=== PATIENT | male | born 1995 | race Caucasian/White ===

== ENCOUNTER 2016-10-03 00:50 | Emergency (ER) | payer OTHER, BC ==
[2016-10-03] MEDS ORDERED: HYDROmorphone 1 MG/ML Syringe ONE (01:02)
[2016-10-03 01:15] LABS: CHLORIDE,CL 104 mmol/L (98-107); SODIUM,NA 140 mmol/L (136-145)
[2016-10-03] MEDS ORDERED: Acetaminophen 500 MG Tab PO ONE (02:03)
[2016-10-03] MEDS ORDERED: Sodium Chloride 0.9% 1,000 ML IV ONE (03:00)
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
== END 2016-10-03 03:15 | disposition home or self-care (01) ==
LOC: LL.ED 00:50 → LL.MS 02:35 → UNDOADMIN 02:35 → LL.ED 03:15
DX: S93.401A Sprain of unspecified ligament of right ankle, initial encounter (principal); S00.81XA Abrasion of other part of head, initial encounter; V49.9XXA Car occupant (driver) (passenger) injured in unspecified traffic accident, initial encounter
CPT/HCPCS: 36415; 71010; 73610; 80048; 85025; 96360; 96361; 99285; A9270; G0390; J7030